=== PATIENT | female | born 1990 | race African-American/Black ===

== ENCOUNTER 2019-02-17 14:44 | Emergency (ER) | payer SELFPAY ==
[~2019-02-17] VITALS: Ht 167.6 cm; Wt 90.0 kg
[2019-02-17 16:11] VITALS: BP 116/65
[2019-02-17] MEDS ORDERED: PEPCID20 MG PO (16:11)
[2019-02-17] MEDS ORDERED: MEDDOSEPAK PO (16:11)
[2019-02-17] MEDS ORDERED: EPIPEN 2-P0.3 MG/0.3 IM (16:11)
[2019-02-17] MEDS ORDERED: BENADRYL 50MG C50 MG PO (16:11)
== END 2019-02-17 16:11 | disposition home or self-care (01) | DRG 918 ==
LOC: ED 14:44
DX: T63.461A Toxic effect of venom of wasps, accidental (unintentional), initial encounter (principal); F17.200 Nicotine dependence, unspecified, uncomplicated